=== PATIENT | male | born 1990 | race African-American/Black ===

== ENCOUNTER 2022-03-27 17:57 | Emergency (ER) | payer SELFPAY ==
--- NOTE | 2022-03-27 18:05 | ED.WOUNDLAC ---
HPI - Wound/Laceration General Chief Complaint: Wound/Laceration Stated Complaint: right leg lac Time Seen by Provider: 03/27/22 18:06 Source: patient and RN notes reviewed History of Present Illness HPI narrative: Patient is a 31-year-old male who presents the urgent care with complaints of a laceration to the right smith. Patient states that he hit it on a piece of glass around 1 PM this afternoon and could not get it to stop bleeding. Patient denies of any other acute complaints. States that he is up-to-date on a tetanus shot. No other acute complaints. No acute distress noted. Patient aware of the plan of care. Some parts of this dictation were generated by voice recognition software and may contain typographical and/or grammatical inaccuracies. Related Data Home Medications Medication Instructions Recorded Confirmed No Home Medications 03/27/22 03/27/22 Allergies Allergy/AdvReac Type Severity Reaction Status Date / Time No Known Allergies Allergy Verified 03/27/22 18:15 Review of Systems Review of Systems: CONSTITUTIONAL: Denies fever, chills, or sweats. EYES: Denies visual changes, redness, or discharge. ENT: Denies rhinorrhea, congestion, sore throat, or otalgia. CARDIOVASCULAR: Denies chest pain, palpitations, or edema. RESPIRATORY: Denies cough or dyspnea. GASTROINTESTINAL: Denies abdominal pain, nausea, vomiting, or diarrhea. GENITOURINARY: Denies dysuria or hematuria. SKIN: Reports of a laceration to the right smith MUSCULOSKELETAL: Denies back pain, joint pain, or myalgia. NEUROLOGIC: Denies headache, numbness, or weakness. All other systems reviewed are negative, except as documented in HPI. PMFSH Comments At the time of my signature, I reviewed and agree with the nursing past medical, surgical, social, and family history. There is no relevant family history pertinent to the patient complaint. Exam Narrative: GENERAL: This is a well-nourished, well-developed patient, in no apparent distress. HEAD: normocephalic, atraumatic. EYES: PERRL. Sclera clear/white. Vision is grossly intact. EARS: External ears normal NOSE: External nose normal with no obvious nasal discharge, nares without redness, no rhinorrhea. THROAT: Mucous membranes moist NECK: Neck supple SKIN: 2 cm x 0.5cm skin avulsion to the right anterior smith NEURO: awake, alert, and oriented to person, place and time. There were no obvious focal neurologic abnormalities. EXTREMITIES: No clubbing, cyanosis, or edema. Course Course Level of Care: Express Care Visit Vital Signs Vital signs: Vital Signs Temperature 99.7 F H 03/27/22 18:07 Pulse Rate 99 03/27/22 18:07 Respiratory Rate 14 03/27/22 18:07 Blood Pressure 118/83 03/27/22 18:07 Pulse Oximetry 99 03/27/22 18:07 Oxygen Delivery Room Air 03/27/22 18:07 Temperature 99.7 F H 03/27/22 18:07 Pulse Rate 99 03/27/22 18:07 Respiratory Rate 14 03/27/22 18:07 Blood Pressure 118/83 03/27/22 18:07 Pulse Oximetry 99 03/27/22 18:07 Oxygen Delivery Room Air 03/27/22 18:07 Reviewed MDM - Wound/Laceration MDM Narrative Medical decision making narrative: Advised patient to keep the wound clean with plain Dial soap and water. Skin avulsions 10 to bleed a lot however if you hold pressure and keep the same bandage on, bleeding will subside. Advised the patient not to remove the current bandage for at least 24 hours unless it becomes soiled. Follow-up with your PCP within 2 to 5 days or for worsening symptoms or failure to improve. Irrigated skin avulsion with normal saline and applied Neosporin, Telfa and Coban. Differential Diagnosis Differential diagnosis: Likely laceration, abscess, abrasion and avulsion of skin Critical Care Time Critical Care Time Critical Care Time: No Discharge Plan Discharge Clinical Impression: Avulsion of skin Patient Disposition: Home, Self-Care Condition: Stable Instructions: Skin Avulsion (ED) Addition
[2022-03-27 18:07] VITALS: BP 118/83; PULSE 99; RESP 14; TEMP 37.6; O2SAT 99
== END 2022-03-27 18:39 | disposition home or self-care (01) ==
PROVIDERS: Emergency Provider Nurse Practitioner Family
DX: S81.801A Unspecified open wound, right lower leg, initial encounter (principal); W25.XXXA Contact with sharp glass, initial encounter; R01.1 Cardiac murmur, unspecified
CPT/HCPCS: 99202; 99203; 99212; G0463

== ENCOUNTER 2024-11-23 07:49 | Emergency (ER) | payer SELFPAY ==
[2024-11-23 07:49] VITALS: BP 167/110; PULSE 103; RESP 16; TEMP 37.1; O2SAT 100
--- OUTSIDE RECORDS SUMMARY | 2024-11-23 08:06 | XMS_ITS | Clinical Summary ---
Author Organization [facility] Address [address] [place] [address] Phone Care Team Providers Care Roving Frame Tender Name Role Phone Provider, None Primary Care Provider Unavailabl e Allergies No known active allergies Medications No known medications Social History Tobacco Use Types Packs/Day Years Used Date Smoking Tobacco: Former Cigarettes Smokeless Tobacco: Never Alcohol Use Standard Drinks/Week Comments Not Currently 0 (1 standard drink = 0.6 oz pur e alcohol) Socially Sex and Gender Information Value Date Recorded Sex Assigned at Not on file Legal Sex Male 7:09 PM VENEER SANDER Gender Identity Not on file Sexual Orientation Not on file Last Filed Vital Signs Vital Sign Reading Time Taken Comments Blood Pressure 148/92 10/01/2021 7:21 PM VENEER SANDER Pulse 107 10/01/2021 7:21 PM VENEER SANDER Temperature 37.4 C (99.3 F) 10/01/2021 7:21 PM VENEER SANDER Respiratory Rate 18 10/01/2021 7:21 PM VENEER SANDER Oxygen Saturation 95% 10/01/2021 7:21 PM VENEER SANDER Inhaled Oxygen Concentration - - Weight 99.8 kg (220 lb) 10/01/2021 7:21 PM VENEER SANDER Height 180.3 cm (5' 11 ) 10/01/2021 7:21 PM VENEER SANDER Body Mass Index 30.68 10/01/2021 7:21 PM VENEER SANDER Plan of Treatment Not on file Care Teams Roving Frame Tender Relationship Specialty Start Date End Date Provider, None [place] PCP - General 10/01/21
[2024-11-23 08:33] LABS: Alanine Aminotransferase 36 U/L (6-50); Albumin Level 4.8 g/dL (3.5-5.1); Alkaline Phosphatase 69 U/L (38-126); Anion Gap 9 mmol/L (4-12); Aspartate Amino Transferase 31 U/L (17-59); Bilirubin,Total 0.5 mg/dL (0.2-1.3); Blood Urea Nitrogen 10 mg/dL (9-20); Calcium 9.8 mg/dL (8.4-10.2); Carbon Dioxide 31 mmol/L (22-30); Chloride 101 mmol/L (98-107); Estimated CRCL calculation 136 ml/min; Estimated Glomerular Filt Rate > 60; Glucose 106 mg/dL (65-110); Potassium 4.6 mmol/L (3.4-5.0); Sodium 141 mmol/L (137-145)
[2024-11-23 08:35] LABS: Appearance Urine Clear (Clear); Blood Urine Negative (Negative); Color Urine Light Yellow (Yellow); Glucose Urine UA Negative (Negative); Ketones Urine Negative (Negative); Protein Urine Negative (Negative); Specific Grav Ur 1.015 (1.010-1.020)
[2024-11-23 08:35] LABS: Basophils Percent Auto 0.2 % (0.2-1.2); Eosinophils Absolute Auto 0.1 K/mm3 (0-0.3); Eosinophils Percent Auto 0.9 % (0-4.4); Hematocrit 48.9 % (42.0-52.0); Immature Granulocyte Absolute 0.04 K/mm3 (0.00-0.031); Immature Granulocyte Percent A 0.3 % (0-0.5); Lymphocytes Absolute Auto 2.36 K/mm3 (0.9-3.2); Lymphocytes Percent Auto 17.9 % (18.3-44.2); Mean Corpuscular HGB Conc 32.7 g/dl (32-36); Mean Corpuscular Volume 94.8 fl (80-100); Monocytes Absolute Auto 0.6 K/mm3 (0.1-0.6); Monocytes Percent Auto 4.3 % (2.6-8.5); Neutrophils Absolute Auto 10.1 K/mm3 (1.3-6.7); Neutrophils Percent Auto 76.4 % (45.5-73.1); Platelet Count Result 265 k/mm3 (150-375); Red Blood Count 5.16 M/mm3 (4.6-6.20); Red Cell Distribution Width 12.2 % (11.5-14.5); White Blood Count 13.2 K/mm3 (4.5-10.0)
[2024-11-23 08:36] LABS: Acetaminophen < 10 ug/mL (10-30); Ethanol < 10 mg/dL (<10); Salicylate < 1.0 mg/dL (2-20)
[2024-11-23 08:36] LABS: Add Urine Microscopic? NO; Bilirubin Urine Negative (Negative); Leukocyte Esterase Ur Negative LEU/UL (Negative); Nitrate Urine Negative (Negative); Urobilinogen Urine 0.2 mg/dL (0.2-1.0)
[2024-11-23 08:53] LABS: Amphetamine Screen Urine Negative (Negative); Barbiturate Screen Urine Negative (Negative); Benzodiazepines Screen Urine Negative (Negative); Cannabinoid Screen Urine Positive (Negative); Cocaine Screen Urine Negative (Negative); Methadone Screen Urine Negative (Negative); Opiate Screen Urine Negative (Negative); Phencyclidine Screen Urine Negative (Negative)
[2024-11-23 08:58] LABS: Influenza A QL RT-PCR Negative (Negative); Influenza B QL RT-PCR Negative (Negative); RSV RNA, RT-PCR Negative (Negative); SARS-CoV-2 RNA PCR Negative (Negative)
--- NOTE | 2024-11-23 10:17 | ED.GENADULT ---
HPI - General Adult General Chief complaint: Psychiatric Symptoms Stated complaint: SI History of Present Illness HPI narrative: Patient is a 34-year-old male who presents ER after being placed in police custody. Apparently he was in the back of the police car when he use some Duster is an inhalant to get high. Patient reports he has depression and inhaling Duster is only thing that helps him treat his depression. He is stress due to being homeless, owing money to the IRS, having other social issues. He is not actively trying to kill himself but is in different about the fact that he may not wake up and he would be fine if that occurred. He has had thoughts of killing himself for the last couple of months. He has not been hospitalized for psychiatric illness in the past. Related Data Home Medications ?Medication ?Instructions ?Recorded ?Confirmed ?Last Taken ?Type No Home Medications 03/27/22 03/27/22 Unknown History Allergies Allergy/AdvReac Type Severity Reaction Status Date / Time No Known Allergies Allergy Verified 03/27/22 18:15 Review of Systems Review of Systems: All systems reviewed & are unremarkable except as noted in HPI and below Constitutional: Constitutional: Reports no additional constitutional complaints ENT: Reports system reviewed and no additional complaints, except as documented Cardiovascular: Cardiovascular: Reports no additional cardiovascular complaints Respiratory: Respiratory: Reports no additional respiratory complaints Gastrointestinal: Gastrointestinal: Reports no additional gastrointestinal complaints Psychiatric: Psychiatric: Denies anxiety, Reports depression, Denies homicidal ideation and Reports suicidal ideation PMFSH Past Medical History Medical History (Updated 11/23/24 @ 10:38 by Donald Zacarias MD) Healthy adult male Surgical History Surgical History (Updated 11/23/24 @ 10:19 by Donald Zacarias MD) No pertinent past surgical history Social History Social History Substance use type: inhalants Exam Narrative: GENERAL: Well-appearing, well-nourished, and in no acute distress. HEAD: Normocephalic, atraumatic. EYES: PERRL and EOMI. ENT: Mucous membranes moist. CHEST: Clear to auscultation. No respiratory distress. HEART: Regular rate and rhythm. Normal peripheral pulses. ABDOMEN: Soft, nontender, nondistended. EXTREMITIES: Normal range of motion. No edema. SKIN: Warm, dry, no rash. NEURO: Alert and oriented x3. PSYCH: Depressed/said, reports thoughts of ending his life without active plan but general in difference towards potentially dying from huffing. Not responding to internal stimuli. Course Course Emergency Course: 919: Patient resting comfortably. Medically cleared for crisis evaluation. 1036: Please have released the patient from their custody and gave him tickets. Crisis has been out to evaluate the patient. They have formed a safety plan with him. Patient will be discharged. Vital Signs Vital signs: Vital Signs Temperature 98.7 F 11/23/24 07:49 Pulse Rate 103 H 11/23/24 07:49 Respiratory Rate 16 11/23/24 07:49 Blood Pressure 167/110 H 11/23/24 07:49 Pulse Oximetry 100 11/23/24 07:49 Oxygen Delivery Room Air 11/23/24 07:49 Temperature 98.7 F 11/23/24 07:49 Pulse Rate 103 H 11/23/24 07:49 Respiratory Rate 16 11/23/24 07:49 Blood Pressure 167/110 H 11/23/24 07:49 Pulse Oximetry 100 11/23/24 07:49 Oxygen Delivery Room Air 11/23/24 07:49 Medical Decision Making Vital Signs Vital Signs: Vital Signs Temperature 98.7 F 11/23/24 07:49 Pulse Rate 103 H 11/23/24 07:49 Respiratory Rate 16 11/23/24 07:49 Blood Pressure 167/110 H 11/23/24 07:49 Pulse Oximetry 100 11/23/24 07:49 Oxygen Delivery Room Air 11/23/24 07:49 Temperature 98.7 F 11/23/24 07:49 Pulse Rate 103 H 11/23/24 07:49 Respiratory Rate 16 11/23/24 07:49 Blood Pressure 167/110 H 11/23/24 07:49 Pulse Oximetry 100 11/23/24 07:49 Oxygen Delivery Room Air 11/23/24 07:49 Lab Data 11/23/24 08:15 11/23/24 08:15 Labs: Lab Results 11/23/24 11/23/24 Range/Units 08:15 08:16 WBC 13.2 H (4.5-10.0) K/mm3 RBC 5.16 (4.6-6.20) M/mm3 Hgb 16.0 (14.0-18.0) g/dL Hct 48.9 (42.0-52.0) % MCV 94.8 (80-100) fl MCH 31.0 (26-34) pg MCHC 32.7 (32-36) g/dl RDW 12.2 (11.5-14.5) % Plt Count 265 (150-375) k/mm3 MPV 10.0 (7.4-10.4) fl Immature Gran % (Auto) 0.3 (0-0.5) % Neut % (Auto) 76.4 H (45.5-73.1) % Lymph % (Auto) 17.9 L (18.3-44.2) % Motley % (Auto) 4.3 (2.6-8.5) % Eos % (Auto) 0.9 (0-4.4) % Baso % (Auto) 0.2 (0.2-1.2) % Lymph # (Auto) 2.36 (0.9-3.2) K/mm3 Motley # (Auto) 0.6 (0.1-0.6) K/mm3 Eos # (Auto) 0.1 (0-0.3) K/mm3 Baso # (Auto) 0.0 (0.0-0.1) K/mm3 Abs Immat Gran (auto) 0.04 H (0.00-0.031) K/mm3 Absolute Neuts (auto) 10.1 H (1.3-6.7) K/mm3 Absolute Nucleated RBC 0.000 (0.0-0.012) K/mm3 Nucleated RBC % 0.0 (0.0-0.2) % Sodium 141 (137-145) mmol/L Potassium 4.6 (3.4-5.0) mmol/L Chloride 101 (98-107) mmol/L Carbon Dioxide 31 H (22-30) mmol/L Anion Gap 9 (4-12) mmol/L BUN 10 (9-20) mg/dL Creatinine 0.71 (0.7-1.3) mg/dL Estim Creat Clear Calc 136 ml/min Estimated GFR > 60 (59 - ) Glucose 106 (65-110) mg/dL Calcium 9.8 (8.4-10.2) mg/dL Total Bilirubin 0.5 (0.2-1.3) mg/dL AST 31 (17-59) U/L ALT 36 (6-50) U/L Alkaline Phosphatase 69 (38-126) U/L Total Protein 8.0 (6.3-8.2) g/dL Albumin 4.8 (3.5-5.1) g/dL TSH 1.120 (0.465-4.680) uIU/mL Urine Color Light yellow (Yellow) Urine Appearance Clear (Clear) Urine pH 7.0 (5.0-8.0) Ur Specific [place] 1.015 (1.010-1.020) Urine Protein Negative (Negative) Urine Glucose (UA) Negative (Negative) Urine Ketones Negative (Negative) Ur Blood (Man) Negative (Negative) Urine Nitrate Negative (Negative) Urine Bilirubin Negative (Negative) Urine Urobilinogen 0.2 (0.2-1.0) mg/dL Leukocyte Esterase Rfl Negative (Negative) CRISTOFER/UL Salicylates < 1.0 L (2-20) mg/dL Urine Opiates Screen Negative (Negative) Urine Methadone Screen Negative (Negative) Acetaminophen < 10 L (10-30) ug/mL Ur Barbiturates Screen Negative (Negative) Ur Phencyclidine Scrn Negative (Negative) Ur Amphetamine Screen Negative (Negative) U Benzodiazepines Scrn Negative (Negative) Urine Cocaine Screen Negative (Negative) U Cannabinoids Screen Positive A (Negative) Ethyl Alcohol < 10 (<10) mg/dL Influenza A (RT-PCR) Negative (Negative) Influenza B (RT-PCR) Negative (Negative) RSV (RT-PCR) Negative (Negative) SARS-CoV-2 RNA (RT-PCR) Negative (Negative) Discharge Plan Discharge Clinical Impression: Inhalant abuse, Depression Patient Disposition: Home Condition: Stable Instructions: Depression (ED) Additional Instructions: Return the ER if you have chest pain and shortness of breath, he can not keep down food water, you lose consciousness, you have thoughts of harming herself or others, or you have additional concerns. Patient Language: Portuguese Prescriptions: No Action No Home Medications Follow-up/Referrals: UNKNOWN,DOCTOR [Primary Care Provider] - 1 Week
== END 2024-11-23 10:50 | disposition home or self-care (01) ==
PROVIDERS: Emergency Provider Emergency Medicine
DX: F32.A Depression, unspecified (principal); F18.10 Inhalant abuse, uncomplicated; Z11.52 Encounter for screening for COVID-19; Z59.00 Homelessness unspecified
CPT/HCPCS: 36415; 80053; 80143; 80179; 80307; 81003; 82077; 84443; 85025; 87637; 99284

== ENCOUNTER 2024-12-01 11:26 | Outpatient (REF) | payer SELFPAY ==
--- OUTSIDE RECORDS SUMMARY | 2024-12-01 08:54 | XMS_ITS | Clinical Summary ---
Author Organization [facility] Address [address] [place] [address] Phone Care Team Providers Care Internal Medicine Veterinary Technician Name Role Phone Provider, None Primary Care [...] on file Legal Sex Male 7:09 PM MANUFACTURING ANALYST Gender Identity Not on file Sexual Orientation Not on file Last Filed Vital Signs Vital Sign Reading Time Taken Comments Blood Pressure 148/92 10/01/2021 7:21 PM MANUFACTURING ANALYST Pulse 107 10/01/2021 7:21 PM MANUFACTURING ANALYST Temperature 37.4 C (99.3 F) 10/01/2021 7:21 PM MANUFACTURING ANALYST Respiratory Rate 18 10/01/2021 7:21 PM MANUFACTURING ANALYST Oxygen Saturation 95% 10/01/2021 7:21 PM MANUFACTURING ANALYST Inhaled Oxygen Concentration - - Weight 99.8 kg (220 lb) 10/01/2021 7:21 PM MANUFACTURING ANALYST Height 180.3 cm (5' 11 ) 10/01/2021 7:21 PM MANUFACTURING ANALYST Body Mass Index 30.68 10/01/2021 7:21 PM MANUFACTURING ANALYST Plan of Treatment Not on file Care Teams Internal Medicine Veterinary Technician Relationship Specialty Start Date End Date Provider, None [place] PCP - General 10/01/21
[2024-12-01 11:35] VITALS: BP 155/104; PULSE 74; RESP 16; TEMP 36.2; O2SAT 99
--- OUTSIDE RECORDS SUMMARY | 2024-12-05 11:37 | XMS_ITS | Clinical Summary ---
Author Organization [facility] Address [address] [place] [address] Phone Care Team Providers Care Software Architect Name Role Phone Provider, None Primary Care [...] on file Legal Sex Male 7:09 PM STORAGE FACILITY RENTAL CLERK Gender Identity Not on file Sexual Orientation Not on file Last Filed Vital Signs Vital Sign Reading Time Taken Comments Blood Pressure 148/92 10/01/2021 7:21 PM STORAGE FACILITY RENTAL CLERK Pulse 107 10/01/2021 7:21 PM STORAGE FACILITY RENTAL CLERK Temperature 37.4 C (99.3 F) 10/01/2021 7:21 PM STORAGE FACILITY RENTAL CLERK Respiratory Rate 18 10/01/2021 7:21 PM STORAGE FACILITY RENTAL CLERK Oxygen Saturation 95% 10/01/2021 7:21 PM STORAGE FACILITY RENTAL CLERK Inhaled Oxygen Concentration - - Weight 99.8 kg (220 lb) 10/01/2021 7:21 PM STORAGE FACILITY RENTAL CLERK Height 180.3 cm (5' 11 ) 10/01/2021 7:21 PM STORAGE FACILITY RENTAL CLERK Body Mass Index 30.68 10/01/2021 7:21 PM STORAGE FACILITY RENTAL CLERK Plan of Treatment Not on file Care Teams Software Architect Relationship Specialty Start Date End Date Provider, None [place] PCP - General 10/01/21
--- OUTSIDE RECORDS SUMMARY | 2024-12-05 12:50 | XMS_ITS | Clinical Summary ---
Author Organization [facility] Address [address] [place] [address] Phone Care Team Providers Care Fern Gatherer Name Role Phone Provider, None Primary Care [...] on file Legal Sex Male 7:09 PM INDUSTRIAL SALES MANAGER Gender Identity Not on file Sexual Orientation Not on file Last Filed Vital Signs Vital Sign Reading Time Taken Comments Blood Pressure 148/92 10/01/2021 7:21 PM INDUSTRIAL SALES MANAGER Pulse 107 10/01/2021 7:21 PM INDUSTRIAL SALES MANAGER Temperature 37.4 C (99.3 F) 10/01/2021 7:21 PM INDUSTRIAL SALES MANAGER Respiratory Rate 18 10/01/2021 7:21 PM INDUSTRIAL SALES MANAGER Oxygen Saturation 95% 10/01/2021 7:21 PM INDUSTRIAL SALES MANAGER Inhaled Oxygen Concentration - - Weight 99.8 kg (220 lb) 10/01/2021 7:21 PM INDUSTRIAL SALES MANAGER Height 180.3 cm (5' 11 ) 10/01/2021 7:21 PM INDUSTRIAL SALES MANAGER Body Mass Index 30.68 10/01/2021 7:21 PM INDUSTRIAL SALES MANAGER Plan of Treatment Not on file Care Teams Fern Gatherer Relationship Specialty Start Date End Date Provider, None [place] PCP - General 10/01/21
== END 2024-12-01 11:45 ==
LOC: ANHED 11:33
DX: Z02.83 Encounter for blood-alcohol and blood-drug test (principal)
CPT/HCPCS: 99199